=== PATIENT | female | born 1975 | race Caucasian/White ===

== ENCOUNTER 2018-11-10 14:42 | Emergency (ER) | payer OTHER ==
[~2018-11-10] VITALS: Ht 167.6 cm; Wt 149.9 kg
[2018-11-10 14:43] VITALS: Ht 167.6 cm; Wt 149.9 kg
[2018-11-10 15:34] LABS: CALCIUM 8.6 mg/dL (8.5-10.1); CARBON DIOXIDE 29.2 mmol/L (21-32); CHLORIDE SERUM 104 mmol/L (98-107); GFR1 > 60 mL/min; GLUCOSE SERUM 104 mg/dL (74-106); POTASSIUM SERUM 3.9 mmol/L (3.5-5.1); SODIUM SERUM 139 mmol/L (136-145)
[2018-11-10 15:39] LABS: ALBUMIN 3.4 g/dL (3.4-5.0); ALKALINE PHOSPHATASE 158 U/L (46-116); ALT/SGPT 28 U/L (14-59); AST/SGOT 12 U/L (15-37); BASOPHIL % 0.3 % (0-2); BILIRUBIN TOTAL 0.4 mg/dL (0.20-1.00); PLATELET COUNT 341 x10^3mcL (130-400); TOTAL PROTEIN, SERUM 7.7 g/dL (6.4-8.2)
[2018-11-10 15:44] LABS: RED CELL DISTRIBUTION WIDTH 16.6 % (11.5-14.5)
[2018-11-10 17:05] VITALS: BP 159/98
== END 2018-11-10 17:05 | disposition home or self-care (01) ==
LOC: ED 14:42
PROVIDERS: Emergency Medicine
DX: R07.89 Other chest pain (principal); J20.8 Acute bronchitis due to other specified organisms
CPT/HCPCS: 36415; 85378; Q0092